=== PATIENT | female | born 1950 | race Caucasian/White ===

== ENCOUNTER 2017-02-06 13:02 | Emergency (ER) | payer MEDICARE, OTHER ==
[~2017-02-06 13:02] MED LIST: ALDACTONE50 MG PO; ALLERGY RELIEF10 M3 PO; AMIODARONE HCL200 MG PO; ASPIRIN EC81 MG PO; CARDIZEM CD120 MG PO; CELEXA40 MG PO; COUMADIN3 MG PO; ISORDIL TAB 1010 MG PO; KLONOPIN TAB 00.5 MG PO; LASIX80 MG PO; LEVOXYL50 MCG PO; LIPITOR TAB 2020 MG PO; LOPRESSOR 25 MG25 MG PO; LOVENOX SY80 MG/0.8 SQ; NEURONTIN 400400 MG PO; OXYCODONE HCL10 MG PO; PROTONIX40 MG PO; SENNA PLUS TAB1 EACH PO; SPIRIVA18 MCG INH; SYMBICORT 16010.2 GM INH; WELLBUTRIN 100100 MG PO
[2017-02-06 15:02] LABS: HEMOGLOBIN 11.9 gm/dl (12.3-15.3); RED BLOOD COUNT 4.08 M/UL (4.00-5.10); WHITE BLOOD COUNT 16.3 K/UL (4.5-11.0)
[2017-02-06 15:18] LABS: BUN/CREATININE RATIO 17 (0-10)
== END 2017-02-06 23:29 | disposition home or self-care (01) ==
LOC: ER1 13:02
PROVIDERS: Emergency Medicine
DX: J44.1 Chronic obstructive pulmonary disease with (acute) exacerbation (principal); I45.81 Long QT syndrome; I10 Essential (primary) hypertension; E11.9 Type 2 diabetes mellitus without complications; Z95.2 Presence of prosthetic heart valve; Z79.01 Long term (current) use of anticoagulants; Z79.82 Long term (current) use of aspirin; Z79.899 Other long term (current) drug therapy
CPT/HCPCS: 71020; 80053; 81001; 82550; 82553; 83605; 83690; 83874; 83880; 84484; 85025; 85610; 85730; 87040; 87086; 93005; 94640; 94664; 96372; 96374; 96375; 99283; J1650; J2930

== ENCOUNTER 2017-02-14 19:31 | Emergency (ER) | payer MEDICARE, OTHER ==
[2017-02-14 20:42] LABS: HEMOGLOBIN 12.4 gm/dl (12.3-15.3); RED BLOOD COUNT 4.24 M/UL (4.00-5.10); WHITE BLOOD COUNT 17.1 K/UL (4.5-11.0)
== END 2017-02-15 01:48 | disposition home or self-care (01) ==
LOC: ER1 19:31
PROVIDERS: Family Medicine
DX: R07.9 Chest pain, unspecified (principal); R10.13 Epigastric pain
CPT/HCPCS: 36415; 80053; 81001; 82150; 82550; 82553; 83690; 83874; 84484; 85025; 93005; 96360; 99285; J7040; J7050; Q9962

== ENCOUNTER 2017-05-08 19:49 | Emergency (ER) | payer MEDICARE, OTHER | END 2017-05-08 21:00 | disposition home or self-care (01) | LOC: ER1 19:49 | DX: M54.32 Sciatica, left side (principal); J44.9 Chronic obstructive pulmonary disease, unspecified; I50.40 Unspecified combined systolic (congestive) and diastolic (congestive) heart failure; I10 Essential (primary) hypertension; E11.9 Type 2 diabetes mellitus without complications | CPT/HCPCS: 73502; 96372; 99283; J1100 ==